=== PATIENT | male | born 1990 | race Caucasian/White ===

== ENCOUNTER 2018-01-19 05:27 | Emergency (ER) | payer OTHER ==
[~2018-01-19] VITALS: Ht 185.4 cm; Wt 86.9 kg
[2018-01-19 05:44] VITALS: Ht 185.4 cm; Wt 86.9 kg
[2018-01-19 07:39] VITALS: BP 130/83
== END 2018-01-19 07:39 | disposition home or self-care (01) ==
LOC: ED 05:27
DX: H61.21 Impacted cerumen, right ear (principal)